=== PATIENT | female | born 1970 | race Two or more races ===

== ENCOUNTER 2016-11-16 12:51 | Inpatient (IN) | payer MEDICARE, MEDICAID ==
[~2016-11-16] VITALS: Ht 157.5 cm; Wt 82.1 kg
[~2016-11-16 12:51] MED LIST: ALPR0.5T7 PO; AMLO10TA2 PO; CAL667C PO; CITA-73 PO; CLON0.2T PO; LOSA100T27 PO; MET50T PO; TRAZ50TA2 PO
[2016-11-16] MEDS ORDERED: SODIUM CHLORIDE 0.9% 1,000 ML IV ONE (13:53)
[2016-11-16] MEDS ORDERED: ONDANSETRON HCL 4 MG/2 ML VIAL IV ONE (14:00)
[2016-11-16 14:17] LABS: Hematocrit 37.4 % (36.0-46.0); Hemoglobin 12.5 g/dL (12.2-16.2); Mean Corpuscular Hemoglobin 28.3 pg (28.0-32.0); Mean Corpuscular Hgb Conc. 33.4 g/dL (32.0-36.0); Mean Corpuscular Volume 84.8 fL (80.0-100.0); Mean Platelet Volume 9.4 fL (7.4-10.4); Platelet Count (auto) 501 10^3/uL (140-450); Red Cell Distribution Width 16.5 % (11.6-16.0)
[2016-11-16 14:31] LABS: Albumin 2.6 g/dL (3.4-5.0); Alkaline Phosphatase 218 U/L (45-117); Anion Gap 20 (5-15); Aspartate Aminotransferase 55 U/L (15-37); BUN/Creatinine Ratio 43.9; Bilirubin, Total 1.3 mg/dL (0.2-1.0); Calcium 9.2 mg/dL (8.5-10.1); Carbon Dioxide 16 mmol/L (21-32); Chloride 100 mmol/L (98-107); GFR African American 25 mL/min; GFR Non-African American 21 mL/min; Glucose 135 mg/dL (74-106); Magnesium 3.4 mg/dL (1.6-2.6); Potassium 3.1 mmol/L (3.5-5.1); Sodium 136 mmol/L (136-145); Total Protein 8.9 g/dL (6.4-8.2)
[2016-11-16 14:34] LABS: Blood Urea Nitrogen 116 mg/dL (7-18); White Blood Cell 30.8 10^3/uL (4.4-10.8)
[2016-11-16 14:35] LABS: Metamyelocytes % 0; Myelocytes % 0; Promyelocytes % 0; Reactive Lymphocytes 0
[2016-11-16 14:49] LABS: Platelet Estimate Increased; RBC Morphology Normal
[2016-11-16 17:13] LABS: Urine Bilirubin Negative (Negative); Urine Blood Negative /uL (Negative); Urine Color Yellow (Yellow); Urine Glucose Normal (Normal); Urine Hyaline Cast FEW /lpf (0 - 2); Urine Ketone Negative (Negative); Urine Nitrite Negative (Negative); Urine RBC 2 /hpf (0 - 4); Urine Squamous Epithelial Cell FEW /hpf (<5); Urine Urobilinogen Normal (Negative); Urine pH 5.5 (5.0-8.0)
[2016-11-16] MEDS ORDERED: TACR1CAP4 PO (17:27)
[2016-11-16] MEDS ORDERED: FAM20T PO (17:27)
[2016-11-16] MEDS ORDERED: FLUO20CA19 PO (17:27)
[2016-11-16] MEDS ORDERED: PRE5T PO (17:27)
[2016-11-16] MEDS ORDERED: MYCO500T PO (17:30)
[2016-11-16] MEDS ORDERED: TEMA30CA PO (17:30)
[2016-11-16] MEDS ORDERED: OXYC325T14 PO (17:30)
[2016-11-16] MEDS ORDERED: POTASSIUM CHLORIDE 8 MEQ TAB PO ONE (17:45)
[2016-11-16] MEDS ORDERED: predniSONE 20 MG TAB PO ONE (17:45)
[2016-11-16] MEDS ORDERED: LEVOFLOXACIN 250MG 50 ML IV ONE (17:45)
[2016-11-16] MEDS ORDERED: MORPHINE SULF INJ 2 MG/ML SYRINGE 1ML IV PRN (18:00)
[2016-11-16] MEDS ORDERED: NITROGLYCERIN 0.4 MG SL TAB SL PRN (18:00)
[2016-11-16] MEDS ORDERED: DEXTROSE (50%) 50ML SYRG IV PRN (18:00)
[2016-11-16] MEDS ORDERED: ACETAMINOPHEN 325 MG TAB PO PRN (18:00)
[2016-11-16] MEDS: Boost Glucose Control 8 Ounces PO SCH ×2 (18:47→22:01)
[2016-11-16] MEDS: SODIUM CHLORIDE 0.9% 1,000 ML IV SCH (18:56)
[2016-11-16] MEDS ORDERED: MULTIPLE VITAMIN TAB PO ONE (19:00)
[2016-11-16] MEDS ORDERED: FLUoxetine HCL 20 MG CAP PO ONE (19:00)
[2016-11-16 20:40] VITALS: BP 99/54
[2016-11-16] MEDS: ONDANSETRON HCL 4 MG/2 ML VIAL IV PRN (21:02)
[2016-11-16] MEDS: MORPHINE SULF INJ 2 MG/ML SYRINGE 1ML IV PRN (21:02)
[2016-11-16 22:00] VITALS: BP 99/54
[2016-11-16] MEDS: MYCOPHENOLATE 250 MG CAP PO SCH (22:00)
[2016-11-16] MEDS ORDERED: MYCOPHENOLATE 250 MG CAP PO SCH ×2 (22:00)
[2016-11-16] MEDS: FAMOTIDINE 20 MG TAB PO SCH (22:00)
[2016-11-16] MEDS: TACROLIMUS 1 MG CAP PO SCH (22:00)
[2016-11-16] MEDS: metroNIDAZOLE 500MG/100ML 100 ML IV SCH (22:00)
[2016-11-16] MEDS: predniSONE 20 MG TAB PO SCH (22:01)
[2016-11-16] MEDS: ACCU-CHEK COMFORT CURVE STRIP VI SCH (22:17)
[2016-11-16] MEDS: InsuLIN REG 1unit/0.01ml Soln (100units/ml) SC SCH (22:21)
[2016-11-17] MEDS ORDERED: FISH1CAP3 PO (02:14)
[2016-11-17] MEDS ORDERED: CALCCHW53 OR (02:14)
[2016-11-17] MEDS ORDERED: CHOL20009 PO (02:14)
[2016-11-17] MEDS ORDERED: TRAM50TA2 PO (02:22)
[2016-11-17] MEDS ORDERED: DOCU100C8 PO (02:22)
[2016-11-17] MEDS ORDERED: DIPH25TA24 PO (02:22)
[2016-11-17] MEDS ORDERED: OXY5T PO (02:22)
[2016-11-17] MEDS ORDERED: TEMA15CA PO (02:22)
[2016-11-17] MEDS ORDERED: OXYC325T14 PO (02:22)
[2016-11-17] MEDS ORDERED: HYDR-4065 PO (02:22)
[2016-11-17] MEDS ORDERED: PERCOT PO (02:22)
[2016-11-17] MEDS ORDERED: MYCO500T PO (02:23)
[2016-11-17] MEDS ORDERED: POLYDRO OP (02:23)
[2016-11-17] MEDS ORDERED: PRE5T PO (02:26)
[2016-11-17] MEDS ORDERED: TACR1CAP4 PO (02:26)
[2016-11-17] MEDS ORDERED: TACR1CAP19 OR (02:26)
[2016-11-17] MEDS: SODIUM CHLORIDE 0.9% 1,000 ML IV SCH ×2 (02:27→10:29)
[2016-11-17 05:00] VITALS: BP 96/54
[2016-11-17] MEDS: metroNIDAZOLE 500MG/100ML 100 ML IV SCH ×3 (05:35→22:50)
[2016-11-17] MEDS: Boost Glucose Control 8 Ounces PO SCH ×4 (05:36→22:51)
[2016-11-17 06:31] LABS: Hematocrit 31.9 % (36.0-46.0); Hemoglobin 10.7 g/dL (12.2-16.2); Mean Corpuscular Hemoglobin 28.2 pg (28.0-32.0); Mean Corpuscular Hgb Conc. 33.5 g/dL (32.0-36.0); Mean Corpuscular Volume 84.3 fL (80.0-100.0); Mean Platelet Volume 8.8 fL (7.4-10.4); Platelet Count (auto) 508 10^3/uL (140-450); Red Cell Distribution Width 16.8 % (11.6-16.0); White Blood Cell 21.1 10^3/uL (4.4-10.8)
[2016-11-17] MEDS: ACCU-CHEK COMFORT CURVE STRIP VI SCH ×4 (06:31→22:52)
[2016-11-17] MEDS: InsuLIN REG 1unit/0.01ml Soln (100units/ml) SC SCH ×4 (06:33→23:06)
[2016-11-17 07:07] LABS: Albumin 2.3 g/dL (3.4-5.0); BUN/Creatinine Ratio 53.8; Bilirubin, Total 0.8 mg/dL (0.2-1.0); Calcium 8.4 mg/dL (8.5-10.1); Potassium 3.7 mmol/L (3.5-5.1); Total Protein 7.5 g/dL (6.4-8.2)
[2016-11-17 07:42] LABS: Metamyelocytes % 0; Myelocytes % 0; Promyelocytes % 0; Reactive Lymphocytes 0
[2016-11-17] MEDS: CALCIUM ACETATE 667 MG CAP PO SCH ×3 (08:31→18:04)
[2016-11-17 08:58] VITALS: BP 100/57
[2016-11-17 09:41] LABS: Large Platelets FEW; Platelet Clumps FEW; Platelet Estimate Increased
[2016-11-17] MEDS ORDERED: FLUoxetine HCL 20 MG CAP PO SCH (10:00)
[2016-11-17] MEDS: MULTIPLE VITAMIN TAB PO SCH (10:20)
[2016-11-17] MEDS: predniSONE 20 MG TAB PO SCH ×2 (10:20→22:51)
[2016-11-17] MEDS: FAMOTIDINE 20 MG TAB PO SCH ×2 (10:20→22:51)
[2016-11-17] MEDS: FLUoxetine HCL 20 MG CAP PO SCH (10:20)
[2016-11-17] MEDS: TACROLIMUS 1 MG CAP PO SCH ×2 (10:21→22:50)
[2016-11-17] MEDS: MYCOPHENOLATE 250 MG CAP PO SCH ×2 (10:21→22:51)
[2016-11-17] MEDS: LEVOFLOXACIN 250MG 50 ML IV SCH (10:22)
[2016-11-17 13:00] VITALS: BP 107/61
[2016-11-17] MEDS ORDERED: SOD CHL 0.45% WITH 20MEQ KCL 1,000 ML IV SCH (14:15)
[2016-11-17] MEDS: SOD CHL 0.45% WITH 20MEQ KCL 1,000 ML IV SCH ×2 (14:34→22:35)
[2016-11-17 17:00] VITALS: BP 102/62
[2016-11-17 20:00] VITALS: BP 113/68
[2016-11-17] MEDS: MORPHINE SULF INJ 2 MG/ML SYRINGE 1ML IV PRN (20:03)
[2016-11-17 23:07] VITALS: BP 113/68
[2016-11-18] MEDS: MORPHINE SULF INJ 2 MG/ML SYRINGE 1ML IV PRN ×2 (04:38→22:10)
[2016-11-18] MEDS: ONDANSETRON HCL 4 MG/2 ML VIAL IV PRN (04:38)
[2016-11-18] MEDS: SOD CHL 0.45% WITH 20MEQ KCL 1,000 ML IV SCH ×3 (04:39→15:20)
[2016-11-18 05:28] VITALS: BP 115/75
[2016-11-18] MEDS: Boost Glucose Control 8 Ounces PO SCH ×4 (06:24→22:09)
[2016-11-18] MEDS: metroNIDAZOLE 500MG/100ML 100 ML IV SCH ×3 (06:24→22:08)
[2016-11-18 06:35] LABS: Hematocrit 30.8 % (36.0-46.0); Hemoglobin 10.1 g/dL (12.2-16.2); Mean Corpuscular Hgb Conc. 32.8 g/dL (32.0-36.0); Mean Corpuscular Volume 85.4 fL (80.0-100.0); Mean Platelet Volume 8.4 fL (7.4-10.4); Platelet Count (auto) 548 10^3/uL (140-450); Red Cell Distribution Width 17.5 % (11.6-16.0); White Blood Cell 12.8 10^3/uL (4.4-10.8)
[2016-11-18] MEDS: ACCU-CHEK COMFORT CURVE STRIP VI SCH ×4 (06:41→22:09)
[2016-11-18] MEDS: InsuLIN REG 1unit/0.01ml Soln (100units/ml) SC SCH ×4 (06:48→22:10)
[2016-11-18 07:03] LABS: BUN/Creatinine Ratio 43.8; Calcium 8.5 mg/dL (8.5-10.1); Potassium 3.9 mmol/L (3.5-5.1)
[2016-11-18 07:25] LABS: Metamyelocytes % 0; Myelocytes % 0; Promyelocytes % 0; Reactive Lymphocytes 0
[2016-11-18 08:36] VITALS: BP 115/71
[2016-11-18] MEDS: predniSONE 20 MG TAB PO SCH ×2 (08:58→22:09)
[2016-11-18] MEDS: FAMOTIDINE 20 MG TAB PO SCH ×2 (08:58→22:09)
[2016-11-18] MEDS: FLUoxetine HCL 20 MG CAP PO SCH (08:58)
[2016-11-18] MEDS: CALCIUM ACETATE 667 MG CAP PO SCH ×3 (08:58→17:43)
[2016-11-18] MEDS: MULTIPLE VITAMIN TAB PO SCH (08:59)
[2016-11-18] MEDS: LEVOFLOXACIN 250MG 50 ML IV SCH (08:59)
[2016-11-18] MEDS: MYCOPHENOLATE 250 MG CAP PO SCH (08:59)
[2016-11-18] MEDS: TACROLIMUS 1 MG CAP PO SCH ×2 (08:59→22:09)
[2016-11-18] MEDS ORDERED: methylPREDNISolone SOD SUCC 125 MG/2 ML VL IV ONE (09:15)
[2016-11-18 12:19] VITALS: BP 116/70
[2016-11-18 15:03] LABS: Platelet Estimate Increased
[2016-11-18 15:09] LABS: Large Platelets FEW
[2016-11-18 16:44] VITALS: BP 111/75
[2016-11-18 20:00] VITALS: BP 121/74
[2016-11-18 22:00] VITALS: BP 121/74
[2016-11-18] MEDS: MYCOPHENOLATE 500 MG TAB PO SCH (22:09)
[2016-11-19] VITALS (7 sets, daily range): BP systolic 106–128; BP diastolic 63–76
[2016-11-19] MEDS: Boost Glucose Control 8 Ounces PO SCH ×4 (05:53→21:59)
[2016-11-19] MEDS: metroNIDAZOLE 500MG/100ML 100 ML IV SCH (05:53)
[2016-11-19 06:29] LABS: Hematocrit 32.7 % (36.0-46.0); Hemoglobin 10.6 g/dL (12.2-16.2); Mean Corpuscular Hemoglobin 27.8 pg (28.0-32.0); Mean Corpuscular Hgb Conc. 32.3 g/dL (32.0-36.0); Mean Platelet Volume 8.6 fL (7.4-10.4); Platelet Count (auto) 635 10^3/uL (140-450); Red Cell Distribution Width 17.8 % (11.6-16.0); White Blood Cell 10.2 10^3/uL (4.4-10.8)
[2016-11-19 06:34] LABS: Metamyelocytes % 0; Myelocytes % 0; Promyelocytes % 0; Reactive Lymphocytes 0
[2016-11-19] MEDS: InsuLIN REG 1unit/0.01ml Soln (100units/ml) SC SCH ×4 (06:45→22:01)
[2016-11-19] MEDS: ACCU-CHEK COMFORT CURVE STRIP VI SCH ×4 (06:45→22:00)
[2016-11-19 07:06] LABS: Albumin 2.3 g/dL (3.4-5.0); BUN/Creatinine Ratio 40.4; Bilirubin, Total 0.4 mg/dL (0.2-1.0); Calcium 8.7 mg/dL (8.5-10.1); Magnesium 2.7 mg/dL (1.6-2.6); Phosphorus 2.6 mg/dL (2.5-4.90); Potassium 4.2 mmol/L (3.5-5.1); Total Protein 6.9 g/dL (6.4-8.2)
[2016-11-19] MEDS: SOD CHL 0.45% WITH 20MEQ KCL 1,000 ML IV SCH ×4 (07:56→23:36)
[2016-11-19 08:27] LABS: Platelet Estimate Increased
[2016-11-19 08:28] LABS: Giant Platelets Few
[2016-11-19] MEDS: LEVOFLOXACIN 250MG 50 ML IV SCH (08:50)
[2016-11-19] MEDS: FAMOTIDINE 20 MG TAB PO SCH ×2 (08:50→21:59)
[2016-11-19] MEDS: CALCIUM ACETATE 667 MG CAP PO SCH ×3 (08:50→18:27)
[2016-11-19] MEDS: predniSONE 20 MG TAB PO SCH ×2 (08:50→21:59)
[2016-11-19] MEDS: MULTIPLE VITAMIN TAB PO SCH (08:50)
[2016-11-19] MEDS: FLUoxetine HCL 20 MG CAP PO SCH (08:50)
[2016-11-19] MEDS: TACROLIMUS 1 MG CAP PO SCH ×2 (09:24→22:00)
[2016-11-19] MEDS: MYCOPHENOLATE 500 MG TAB PO SCH ×2 (09:24→21:59)
[2016-11-19] MEDS ORDERED: methylPREDNISolone SOD SUCC 125 MG/2 ML VL IV ONE (10:00)
[2016-11-19] MEDS ORDERED: metroNIDAZOLE 500 MG TAB PO ONE (15:15)
[2016-11-19] MEDS: HYDROcodone-ACET 5/325MG TAB PO PRN (19:05)
[2016-11-19] MEDS: metroNIDAZOLE 500 MG TAB PO SCH (21:59)
[2016-11-20] MEDS: HYDROcodone-ACET 5/325MG TAB PO PRN ×2 (01:07→10:50)
[2016-11-20 04:41] VITALS: BP 113/60
[2016-11-20] MEDS: Boost Glucose Control 8 Ounces PO SCH ×2 (06:00→12:08)
[2016-11-20] MEDS: metroNIDAZOLE 500 MG TAB PO SCH ×3 (06:36→21:31)
[2016-11-20] MEDS: SOD CHL 0.45% WITH 20MEQ KCL 1,000 ML IV SCH (06:36)
[2016-11-20] MEDS: InsuLIN REG 1unit/0.01ml Soln (100units/ml) SC SCH ×4 (06:45→21:32)
[2016-11-20] MEDS: ACCU-CHEK COMFORT CURVE STRIP VI SCH ×4 (06:45→21:31)
[2016-11-20] MEDS: predniSONE 20 MG TAB PO SCH ×2 (08:39→21:31)
[2016-11-20] MEDS: FLUoxetine HCL 20 MG CAP PO SCH (08:39)
[2016-11-20] MEDS: LEVOFLOXACIN 500 MG TAB PO SCH (08:39)
[2016-11-20] MEDS: FAMOTIDINE 20 MG TAB PO SCH (08:39)
[2016-11-20] MEDS: CALCIUM ACETATE 667 MG CAP PO SCH ×3 (08:39→17:38)
[2016-11-20] MEDS: MULTIPLE VITAMIN TAB PO SCH (08:39)
[2016-11-20 09:00] VITALS: BP 92/61
[2016-11-20] MEDS: TACROLIMUS 1 MG CAP PO SCH ×2 (10:00→21:31)
[2016-11-20] MEDS: SODIUM BICARBONATE 50ML VIAL 50 ML in SOD CHL 0.45% WITH 20MEQ KCL 1,000 ML IV SCH ×2 (10:00→20:00)
[2016-11-20] MEDS: MYCOPHENOLATE 500 MG TAB PO SCH ×2 (10:00→21:31)
[2016-11-20 13:00] VITALS: BP 120/70
[2016-11-20] MEDS ORDERED: NICOTINE 21MG/24 HR TOPICAL PATCH TD ONE (14:45)
[2016-11-20 16:55] VITALS: BP 139/78
[2016-11-20 21:56] VITALS: BP 126/65
[2016-11-20] MEDS: ONDANSETRON HCL 4 MG/2 ML VIAL IV PRN (23:20)
[2016-11-21 04:59] VITALS: BP 119/70
[2016-11-21] MEDS: metroNIDAZOLE 500 MG TAB PO SCH ×2 (06:29→14:23)
[2016-11-21] MEDS: SODIUM BICARBONATE 50ML VIAL 50 ML in SOD CHL 0.45% WITH 20MEQ KCL 1,000 ML IV SCH ×2 (06:30→17:30)
[2016-11-21] MEDS: ACCU-CHEK COMFORT CURVE STRIP VI SCH ×3 (06:30→17:04)
[2016-11-21] MEDS: InsuLIN REG 1unit/0.01ml Soln (100units/ml) SC SCH ×3 (06:31→17:15)
[2016-11-21 06:42] LABS: BUN/Creatinine Ratio 27.9; Calcium 8.2 mg/dL (8.5-10.1); Potassium 3.8 mmol/L (3.5-5.1)
[2016-11-21 07:40] VITALS: BP 124/67
[2016-11-21] MEDS: CALCIUM ACETATE 667 MG CAP PO SCH ×3 (08:22→17:05)
[2016-11-21 09:07] VITALS: BP 124/67
[2016-11-21] MEDS ORDERED: NICOTINE 21MG/24 HR TOPICAL PATCH TD SCH (10:00)
[2016-11-21] MEDS: FLUoxetine HCL 20 MG CAP PO SCH (10:05)
[2016-11-21] MEDS: LEVOFLOXACIN 500 MG TAB PO SCH (10:05)
[2016-11-21] MEDS: predniSONE 20 MG TAB PO SCH (10:05)
[2016-11-21] MEDS: MULTIPLE VITAMIN TAB PO SCH (10:05)
[2016-11-21] MEDS: FAMOTIDINE 20 MG TAB PO SCH (10:05)
[2016-11-21] MEDS: TACROLIMUS 1 MG CAP PO SCH (10:07)
[2016-11-21] MEDS: MYCOPHENOLATE 500 MG TAB PO SCH (10:08)
[2016-11-21] MEDS ORDERED: POTASSIUM CHL 20 Meq TABLET PO ONE (10:15)
[2016-11-21 12:59] VITALS: BP 126/67
[2016-11-21 16:24] VITALS: BP 127/64
[2016-11-21 17:18] VITALS: BP 130/64
== END 2016-11-21 18:30 | disposition home or self-care (01) | DRG 871 ==
LOC: EDBD 12:51 → ER 12:55 → TELE 12:56 → TELE-EAST 20:14
PROVIDERS: ADMIT Internal Medicine; ATTEND Internal Medicine Pulmonary Disease
DX: A41.9 Sepsis, unspecified organism (principal); E43 Unspecified severe protein-calorie malnutrition; N17.0 Acute kidney failure with tubular necrosis; A04.7 Enterocolitis due to Clostridium difficile; N10 Acute pyelonephritis; Z94.0 Kidney transplant status; I13.0 Hypertensive heart and chronic kidney disease with heart failure and stage 1 through stage 4 chronic kidney disease, or unspecified chronic kidney disease; I50.9 Heart failure, unspecified; K52.9 Noninfective gastroenteritis and colitis, unspecified; E11.65 Type 2 diabetes mellitus with hyperglycemia; E11.22 Type 2 diabetes mellitus with diabetic chronic kidney disease; E87.6 Hypokalemia; B96.20 Unspecified Escherichia coli [E. coli] as the cause of diseases classified elsewhere; D75.89 Other specified diseases of blood and blood-forming organs; E83.42 Hypomagnesemia; E86.0 Dehydration; Z82.49 Family history of ischemic heart disease and other diseases of the circulatory system; Z83.3 Family history of diabetes mellitus; Z87.442 Personal history of urinary calculi; Z99.2 Dependence on renal dialysis; Z88.0 Allergy status to penicillin; Z88.8 Allergy status to other drugs, medicaments and biological substances; Z91.011 Allergy to milk products; Z80.9 Family history of malignant neoplasm, unspecified; Z68.33 Body mass index [BMI] 33.0-33.9, adult; N18.3 Chronic kidney disease, stage 3 (moderate)
CPT/HCPCS: 36415; 51702; 71010; 74176; 76775; 80048; 80053; 80197; 81001; 82306; 82962; 83036; 83605; 83690; 83735; 83970; 84100; 84484; 85007; 85027; 87040; 87045; 87081; 87086; 87088; 87186; 87493; 87899; 93005; 96361; 96365; 96375; 97001; 97116; 97530; 99291; J1815; J2405; J3490; J7507; J7517

== ENCOUNTER 2020-11-28 10:10 | Emergency (ER) | payer MEDICAID ==
[~2020-11-28] VITALS: Ht 167.6 cm; Wt 74.8 kg
[~2020-11-28 10:10] MED LIST changes: -ALPR0.5T7 PO; -AMLO10TA2 PO; -CAL667C PO; +CALC667C5 PO; +CALCCHW53 OR; +CHOL20009 PO; -CITA-73 PO; -CLON0.2T PO; +DIPH25TA24 PO; +DOCU100C10 PO; +FAMO20TA10 PO; +FISH1CAP3 PO; +FLUO20CA19 PO; -LOSA100T27 PO; -MET50T PO; +MYCO500T PO; +OXY5T PO; +OXYC325T14 PO; +PERCOT PO; +POLYDRO OP; +PRE5T PO; +TACR1CAP19 OR; +TACR1CAP4 PO; +TEMA15CA PO; +TEMA30CA PO; +TRAM50TA2 PO; -TRAZ50TA2 PO; +[UNRECOGNIZED DRUG - CODE] PO
[2020-11-28] MEDS ORDERED: ONDANSETRON HCL 4 MG/2 ML VIAL IV ONE (11:00)
[2020-11-28] MEDS ORDERED: HYDROmorphone HCL 2 MG/ML VL IV ONE (11:00)
[2020-11-28 13:02] VITALS: BP 126/64
== END 2020-11-28 12:58 | disposition home or self-care (01) ==
LOC: EDBD 10:10 → ER 10:10
DX: S52.571A Other intraarticular fracture of lower end of right radius, initial encounter for closed fracture (principal); S52.611A Displaced fracture of right ulna styloid process, initial encounter for closed fracture; S96.912A Strain of unspecified muscle and tendon at ankle and foot level, left foot, initial encounter; S80.01XA Contusion of right knee, initial encounter; I13.2 Hypertensive heart and chronic kidney disease with heart failure and with stage 5 chronic kidney disease, or end stage renal disease; N18.6 End stage renal disease; I50.9 Heart failure, unspecified; E78.5 Hyperlipidemia, unspecified; Z90.710 Acquired absence of both cervix and uterus; Z88.0 Allergy status to penicillin; Z87.442 Personal history of urinary calculi; W10.8XXA Fall (on) (from) other stairs and steps, initial encounter; Y93.89 Activity, other specified; Y92.89 Other specified places as the place of occurrence of the external cause; Y99.8 Other external cause status
CPT/HCPCS: 29125; 73110; 96374; 96375; 99284; J1170; J2405